=== PATIENT | female | born 1990 | race Hispanic/Latino ===

== ENCOUNTER 2024-07-21 09:09 | Day surgery (SDC) | payer OTHER ==
[~2024-07-21] VITALS: Ht 165.1 cm; Wt 64.1 kg
--- NOTE | ~2024-07-21 | OR ---
[facility] [address], [place] [address] Draft DATE OF OPERATION: 07/21/2024 SURGEON: Jose Self MD PREOPERATIVE DIAGNOSES: Chronic tonsillitis, tonsil lithiasis, tonsillar hypertrophy. POSTOPERATIVE DIAGNOSES: Chronic tonsillitis, tonsil lithiasis, tonsillar hypertrophy. PROCEDURE: Tonsillectomy. ANESTHESIA: General orotracheal, CATTLE DEHORNER, Carol. PREOPERATIVE HISTORY: Leonard is a 33-year-old lady with a long history of enlarged tonsils, snoring, , difficulty sleeping, taken to the operating for the above-mentioned procedures. OPERATIVE PROCEDURE AND FINDINGS: After informed consent, the patient was taken to the operating room, placed in the supine position where general orotracheal anesthesia was induced. The patient and procedure were verified. The patient was repositioned McIvor mouth gag placed into suspension. Headlight exam of the pharynx showed markedly hypertrophic obstructive cryptic tonsils. The left tonsil was grasped with a tenaculum, retracted medially and removed from its fossa with mucosal sparing incisions with Coblation. The field was dry after the procedure. Same procedure on the right tonsil. Tonsils were sent to pathology. The mouth gag was released for several minutes. Reinspection showed no bleeding points. Pharynx was suctioned clear of blood and secretions. Mouth gag was removed. The patient was awakened, extubated, transported to recovery room in good condition. No complications. BLOOD LOSS: Minimal. SPECIMEN: To pathology. PATIENT NAME: LEONARD GILLIS OPERATIVE REPORT DATE OF : [birth year] REPORT #: [id number] PHYSICIAN: JOSE SELF MD PCP: OTHER PCP REPORT IS CONFIDENTIAL AND NOT TO BE RELEASED WITHOUT AUTHORIZATION [facility] [address] [place] [address] [place] [address] Draft DRAINS: No drains. Jose Self MD GC/TUTU /[id number] Copies: ~ PATIENT NAME: LEONARD GILLIS OPERATIVE REPORT DATE OF : [birth year] REPORT #: [id number] PHYSICIAN: JOSE SELF MD PCP: OTHER PCP REPORT IS CONFIDENTIAL AND NOT TO BE RELEASED WITHOUT AUTHORIZATION
[~2024-07-21 09:09] MED LIST: IBLOOD GLUCOSE TEST STRIP 1 EA TEST VI PRN; LACTATED RINGER'S 1,000 ML IV SCH; LIDOCAINE HCL 1% 5 ML SDV INJ ONE; ONDANSETRON ODT8 MG PO
[2024-07-21] MEDS ORDERED: propofoL 200 MG/20 ML VIAL ONE (09:20)
[2024-07-21 09:30] VITALS: BP 133/87
[2024-07-21] MEDS ORDERED: MIDAZOLAM HCL 2 MG/2 ML VIAL ONE (09:53)
[2024-07-21] MEDS ORDERED: ondansetron HCL 4 MG/2 ML VIAL ONE ×2 (09:54→10:03)
[2024-07-21] MEDS ORDERED: DEXAMETHASONE SOD PHOS 4 MG/ML VIAL ONE (09:54)
[2024-07-21] MEDS ORDERED: fentaNYL citrate 100 MCG/2 ML VIAL ONE (09:54)
[2024-07-21] MEDS ORDERED: SUGAMMADEX SODIUM 200 MG/2 ML ML ONE (10:10)
[2024-07-21] MEDS ORDERED: ROCURONIUM BROMIDE 50 MG/5 ML SYR ONE (10:10)
[2024-07-21] MEDS ORDERED: LIDOCAINE HCL 2% 5 ML SDV ONE (10:32)
[2024-07-21] MEDS ORDERED: ACETAMINOPHEN 1,000 MG/100 ML VIAL ONE (10:41)
[2024-07-21] MEDS ORDERED: ePHEDrine sulfate 50 MG/ML AMP ONE (10:41)
[2024-07-21] MEDS ORDERED: ondansetron HCL 4 MG/2 ML VIAL IV PRN (11:30)
[2024-07-21] MEDS ORDERED: NALOXONE HCL 0.4 MG SYR IV PRN (11:30)
[2024-07-21] MEDS ORDERED: IBLOOD GLUCOSE TEST STRIP 1 EA TEST VI PRN (11:30)
[2024-07-21] MEDS ORDERED: fentaNYL citrate 50 MCG/ML SDV IV PRN (11:30)
[2024-07-21 11:49] VITALS: BP 130/90
[2024-07-21] MEDS ORDERED: ACETA/HYDROCODONE 325/7.5 15 ML BTL PO PRN (12:00)
[2024-07-21 12:48] VITALS: BP 134/90
--- NOTE | 2024-07-24 12:02 | PATH ---
[facility] [address], [place] [address] Signed SPECIMEN(S): A BILATERAL TONSILS SPECIMEN SOURCE: A. BILATERAL TONSILS CLINICAL HISTORY: tonsillolithiasis, tonsillar hypertrophy FINAL PATHOLOGIC DIAGNOSIS: Tonsils, bilateral, tonsillectomies: - Reactive lymphoid hyperplasia BRP MICROSCOPIC EXAMINATION: Histologic sections of all submitted blocks are examined by light microscopy. These findings, together with the gross examination, support the pathologic diagnosis. GROSS DESCRIPTION: The specimen, labeled and designated "Vicki Hendrickson, bilateral tonsils," is received in formalin and consists of two palatine tonsils. The first tonsil measures 2.6 x 1.7 x 1.6 cm and the margin is inked blue. The second tonsil measures 3.0 x 2.2 x 1.7 cm. Both tonsils have a cerebriform outer surface and are sectioned to reveal predominately pink-snider grossly unremarkable crypts. In the larger tonsil possible tonsil stones seen. Bull Fiddle Player sections submitted in single cassette. CLAY (under the direct supervision of a pathologist) The Gross Description was prepared using a voice recognition system. The report was reviewed for accuracy; however, sound-alike word errors, addition and/or deletions may occur. If there is any question about this report, please contact Client Services. ADDITIONAL NOTES: Immunohistochemical and/or in situ hybridization studies if performed in this case included appropriate positive controls that reacted as expected. This test was developed and its performance characteristics determined by [facility]. It has not been cleared or approved by the U.S. Food and Drug Administration. The FDA has determined that such clearance or approval is not necessary. This test is used for clinical purposes. It should not be regarded PATIENT NAME: LAUREN HENDRICKSON PATHOLOGY DATE OF : [birth year] REPORT #: [id number] PHYSICIAN: ALMAS AGUILA PCP: OTHER PCP REPORT IS CONFIDENTIAL AND NOT TO BE RELEASED WITHOUT AUTHORIZATION [facility] [address], [place] [address] Signed as investigational or for research. [facility] is certified under the Clinical Laboratory Improvement Amendments of 1988 (CLIA) as qualified to perform high complexity clinical laboratory testing. PERFORMING LABORATORY: Technical component was performed by [facility], [address] [place] [address] (CLIA# [id number]). Professional interpretation was performed by [facility], [address] [place] [address] (CLIA#: [id number]). Diagnostician: Isauro Goetz MD Pathologist Electronically Signed 07/24/2024 Copies: ~ PATIENT NAME: LAUREN HENDRICKSON PATHOLOGY DATE OF : [birth year] REPORT #: [id number] PHYSICIAN: ALMAS PATHOLOGY PCP: OTHER PCP REPORT IS CONFIDENTIAL AND NOT TO BE RELEASED WITHOUT AUTHORIZATION
== END 2024-07-21 12:55 | disposition home or self-care (01) ==
LOC: DS 09:09
PROVIDERS: ATTEND Otolaryngology
PROC: 0CTPXZZ Resection of Tonsils, External Approach (ICD-10-PCS; principal; 2024-07-21 11:00)
DX: J35.01 Chronic tonsillitis (principal)
CPT/HCPCS: 00170; 84703; J0131; J1100; J2001; J2250; J2405; J2704; J3010; J3490